=== PATIENT | female | born 2000 | race Caucasian/White ===

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

== ENCOUNTER 2019-07-13 22:38 | Emergency (ER) | payer SELFPAY ==
[~2019-07-13] VITALS: Ht 165.1 cm; Wt 81.8 kg
[~2019-07-13 22:38] MED LIST changes: +DEPO-PROVER150 MG/M1 IM; +SEPTRA DS 8001 TAB PO
[2019-07-13 23:36] LABS: COLLECTION METHOD CLEAN CATCH
[2019-07-13 23:44] LABS: MUCOUS Present /lpf; PH 5 (5-8); URINE APPEARANCE Clear; URINE BACTERIA None Seen /hpf; URINE BILIRUBIN Negative (NEGATIVE); URINE BLOOD Negative (NEGATIVE); URINE COLOR Yellow; URINE GLUCOSE Negative (NEGATIVE); URINE KETONE Negative (NEGATIVE); URINE LEUKOCYTE ESTERASE Trace (NEGATIVE); URINE NITRATE Negative (NEGATIVE); URINE PROTEIN(semi-quant) Negative (NEGATIVE); URINE RBC 0-2 /hpf; URINE UROBILINOGEN Negative (NEGATIVE)
[2019-07-13 23:59] LABS: BASO % 0.3 % (0.0-2.0); EOS # 0.1 (0.0-0.7); EOS % 1.2 % (0-4.0); GRAN # 6.3 (1.4-6.5); GRAN % 73.1 % (42.2-75.2); HEMOGLOBIN 14.1 g/dl (12.0-15.0); LYMPH # 1.3 (1.2-3.4); LYMPH % 15.4 % (20.0-51.0); MEAN CELL VOLUME 87 fl (80.0-95.0); MEAN CORPUSCULAR HEMOGLOBIN 31 pg (26.0-32.0); MEAN CORPUSCULAR HGB CONC 35 g/dl (33.0-37.0); MEAN PLATELET VOLUME 9.1 fl (7.4-10.4); MONO # 0.8 (0.1-0.6); MONO % 9.8 % (1.7-9.3); PLATELET COUNT 236 K/mm3 (130-400); RED BLOOD COUNT 4.59 M/mm3 (4.10-5.30); REDCELL DISTRIBUTION WIDTH-CV 11.8 % (11.5-14.5)
[2019-07-14 00:24] LABS: ALBUMIN 4.2 gm/dL (3.5-5.0); BILIRUBIN,TOTAL 0.2 mg/dL (0.0-1.0); C-REACTIVE PROTEIN 2.2 mg/dL (0.0-0.9); CALCIUM 8.8 mg/dL (8.4-10.2); CREATININE, serum 0.6 (0.52-1.25); POTASSIUM 3.9 mmol/L (3.4-5.0); TOTAL PROTEIN 7.8 gm/dL (6.4-8.2)
[2019-07-14 02:08] VITALS: BP 123/88; PULSE 110; TEMP 98.3
[2019-07-14] MEDS ORDERED: FLAGYL500 MG PO (02:20)
[2019-07-15] MEDS ORDERED: ZOVIRAX400 MG PO (17:21)
== END 2019-07-14 02:42 | disposition home or self-care (01) ==
LOC: COL.ER 22:38
PROVIDERS: Nurse Practitioner
DX: N76.0 Acute vaginitis (principal); F17.210 Nicotine dependence, cigarettes, uncomplicated
CPT/HCPCS: A4216; J0696; J1885; J7030

== ENCOUNTER 2019-07-15 16:24 | Emergency (ER) | payer SELFPAY ==
[~2019-07-15] VITALS: Ht 165.1 cm; Wt 81.8 kg
[2019-07-15 16:32] VITALS: BP 129/79; TEMP 98.2
[2019-07-15] MEDS ORDERED: ZOVIRAX400 MG PO (17:21)
[2019-07-15 18:03] VITALS: PULSE 103
== END 2019-07-15 18:03 | disposition home or self-care (01) ==
LOC: COL.ER 16:24
DX: A60.04 Herpesviral vulvovaginitis (principal)

== ENCOUNTER 2019-10-09 22:44 | Emergency (ER) | payer SELFPAY ==
[~2019-10-09] VITALS: Ht 165.1 cm; Wt 81.8 kg
[~2019-10-09 22:44] MED LIST changes: +ZOVIRAX400 MG PO
[2019-10-09 22:56] VITALS: BP 125/69; TEMP 97.8
[2019-10-10] MEDS ORDERED: MOBIC 7.5MG7.5 MG PO (00:55)
[2019-10-10 01:05] VITALS: PULSE 88
== END 2019-10-10 01:05 | disposition home or self-care (01) ==
LOC: COL.ER 22:44
DX: M25.572 Pain in left ankle and joints of left foot (principal); F17.210 Nicotine dependence, cigarettes, uncomplicated

== ENCOUNTER 2020-06-09 23:29 | Emergency (ER) | payer SELFPAY ==
[~2020-06-09] VITALS: Ht 165.1 cm; Wt 75.0 kg
[~2020-06-09 23:29] MED LIST changes: +MOBIC 7.5MG7.5 MG PO
[2020-06-09 23:35] VITALS: BP 127/83; TEMP 97.4
[2020-06-09 23:46] LABS: COLLECTION METHOD CLEAN CATCH
[2020-06-10] LABS: MUCOUS Present /lpf; PH 6 (5-8); URINE APPEARANCE Cloudy; URINE BACTERIA None Seen /hpf; URINE BILIRUBIN Negative (NEGATIVE); URINE BLOOD 2+ (NEGATIVE); URINE COLOR Amber; URINE GLUCOSE Negative (NEGATIVE); URINE KETONE Negative (NEGATIVE); URINE LEUKOCYTE ESTERASE 1+ (NEGATIVE); URINE NITRATE Positive (NEGATIVE); URINE PROTEIN(semi-quant) 1+ (NEGATIVE); URINE RBC >50 /hpf; URINE UROBILINOGEN >=4.0 mg/dL (NEGATIVE)
[2020-06-10] MEDS ORDERED: BACTRIM DS 8001 TAB PO ×2 (00:41)
[2020-06-10] MEDS ORDERED: CEPHALEXIN500 M1 PO (01:39)
[2020-06-10 02:30] VITALS: PULSE 100
== END 2020-06-10 02:30 | disposition home or self-care (01) ==
LOC: COL.ER 23:29
PROVIDERS: Emergency Medicine
DX: N12 Tubulo-interstitial nephritis, not specified as acute or chronic (principal); F17.210 Nicotine dependence, cigarettes, uncomplicated
CPT/HCPCS: J0696; J7030

== ENCOUNTER 2020-11-05 06:39 | Emergency (ER) | payer OTHER ==
[~2020-11-05] VITALS: Ht 165.1 cm; Wt 79.5 kg
[~2020-11-05 06:39] MED LIST changes: +BACTRIM DS 8001 TAB PO
[2020-11-05 06:48] VITALS: BP 111/77; TEMP 97.9
[2020-11-05] MEDS ORDERED: PROVENTIL0.09 MG/A1 IH (08:07)
[2020-11-05] MEDS ORDERED: PREDNISONE50 MG PO (08:07)
[2020-11-05 08:25] VITALS: PULSE 80
== END 2020-11-05 08:25 | disposition home or self-care (01) ==
LOC: COL.ER 06:39
DX: R06.2 Wheezing (principal); F17.210 Nicotine dependence, cigarettes, uncomplicated; Z20.822 Contact with and (suspected) exposure to COVID-19
CPT/HCPCS: J7512

== ENCOUNTER 2021-03-30 01:10 | Emergency (ER) | payer SELFPAY ==
[~2021-03-30] VITALS: Ht 165.1 cm; Wt 88.6 kg
[~2021-03-30 01:10] MED LIST changes: +PREDNISONE50 MG PO
[2021-03-30 01:23] VITALS: BP 115/96; PULSE 85; TEMP 98.8
== END 2021-03-30 01:45 | disposition home or self-care (01) ==
LOC: COL.ER 01:10
DX: S61.412A Laceration without foreign body of left hand, initial encounter (principal); F17.210 Nicotine dependence, cigarettes, uncomplicated; W26.0XXA Contact with knife, initial encounter

== ENCOUNTER 2021-05-29 17:43 | Emergency (ER) | payer SELFPAY ==
[~2021-05-29] VITALS: Ht 165.1 cm; Wt 88.6 kg
[2021-05-29 17:58] VITALS: TEMP 98.2
[2021-05-29 19:02] VITALS: BP 138/76; PULSE 94
== END 2021-05-29 19:02 | disposition home or self-care (01) ==
LOC: COL.ER 17:43
DX: B34.9 Viral infection, unspecified (principal); J45.990 Exercise induced bronchospasm; F17.210 Nicotine dependence, cigarettes, uncomplicated; Z20.822 Contact with and (suspected) exposure to COVID-19; Z79.899 Other long term (current) drug therapy

== ENCOUNTER 2021-11-08 08:01 | Emergency (ER) | payer SELFPAY ==
[~2021-11-08] VITALS: Ht 165.1 cm; Wt 81.8 kg
[~2021-11-08 08:01] MED LIST changes: +PROAIR HFA0.09 MG/AC IH
[2021-11-08 08:05] VITALS: TEMP 97.8
[2021-11-08 09:22] VITALS: BP 119/70; PULSE 90
== END 2021-11-08 09:22 | disposition home or self-care (01) ==
LOC: COL.ER 08:01
DX: S62.347A Nondisplaced fracture of base of fifth metacarpal bone, left hand, initial encounter for closed fracture (principal); W22.8XXA Striking against or struck by other objects, initial encounter; Y92.511 Restaurant or cafe as the place of occurrence of the external cause

== ENCOUNTER 2021-12-04 18:23 | Emergency (ER) | payer SELFPAY ==
[~2021-12-04] VITALS: Ht 12.7 cm; Wt 84.1 kg
[2021-12-04 18:45] VITALS: BP 143/67; TEMP 98.3
[2021-12-04] MEDS ORDERED: CEPHALEXIN500 M1 PO (19:34)
[2021-12-04] MEDS ORDERED: BACTRIM DS 8001 TAB PO (19:34)
[2021-12-04 19:45] VITALS: PULSE 97
== END 2021-12-04 19:45 | disposition home or self-care (01) ==
LOC: COL.ER 18:23
DX: L81.8 Other specified disorders of pigmentation (principal); Z28.311 Partially vaccinated for COVID-19

== ENCOUNTER 2022-01-07 13:06 | Emergency (ER) | payer SELFPAY ==
[~2022-01-07] VITALS: Ht 165.1 cm; Wt 81.8 kg
[2022-01-07 13:54] VITALS: BP 126/83; PULSE 88
[2022-01-07 15:30] LABS: BASO % 0.4 % (0.0-2.0); EOS # 0.2 K/mm3 (0.0-0.7); EOS % 2.8 % (0.0-4.0); GRAN # 5.2 K/mm3 (1.4-6.5); GRAN % 61.4 % (42.2-75.2); HEMATOCRIT 38.1 % (37.0-47.0); HEMOGLOBIN 13.2 g/dl (12.5-16.0); LYMPH # 2.2 K/mm3 (1.2-3.4); LYMPH % 26.3 % (20.0-51.0); MEAN CELL VOLUME 90 fl (80.0-100.0); MEAN CORPUSCULAR HEMOGLOBIN 31 pg (27-31); MEAN CORPUSCULAR HGB CONC 35 g/dl (33.0-37.0); MEAN PLATELET VOLUME 9.2 fl (7.4-10.4); MONO # 0.8 K/mm3 (0.1-0.6); MONO % 8.9 % (1.7-9.3); PLATELET COUNT 247 K/mm3 (130-400); RED BLOOD COUNT 4.22 M/mm3 (4.10-5.30); REDCELL DISTRIBUTION WIDTH-CV 12.5 % (11.5-14.5)
[2022-01-07 16:13] LABS: INR 0.9 (0.8-3.0); PROTHROMBIN TIME 10.5 SECONDS (9.7-12.8)
== END 2022-01-07 17:24 | disposition home or self-care (01) ==
LOC: COL.ER 13:06
PROVIDERS: Physician Assistant
DX: R05.9 Cough, unspecified (principal)

== ENCOUNTER 2024-04-20 11:35 | Observation (INO) | payer MEDICAID ==
[2024-04-20] VITALS (7 sets, daily range): BP systolic 100–126; BP diastolic 55–84; PULSE 68–78; TEMP 97.7–98.4
[~2024-04-20] VITALS: Ht 165.1 cm; Wt 84.1 kg
[2024-04-20] MEDS ORDERED: Morphine 4 MG/ML VIAL IV PRN ×2 (12:15→21:15)
[2024-04-20] MEDS ORDERED: NS 1,000 ML IV ONE (12:15)
[2024-04-20] MEDS ORDERED: Ondansetron 4 MG/2 ML VIAL IV ONE (12:15)
[2024-04-20 12:33] LABS: ALBUMIN 4.2 g/dL (3.5-5.0); BILIRUBIN,TOTAL 0.7 mg/dL (0.2-1.2); CALCIUM 9.5 mg/dL (8.4-10.2); CREATININE, serum 0.86 mg/dL (0.57-1.11); POTASSIUM 3.5 mEq/L (3.5-4.5); TOTAL PROTEIN 7.9 g/dl (6.2-8.1)
[2024-04-20 12:37] LABS: BASO # 0.1 K/mm3 (0.0-0.2); BASO % 0.3 % (0.0-2.0); EOS # 0.3 K/mm3 (0.0-0.7); EOS % 1.7 % (0.0-4.0); GRAN # 14.1 K/mm3 (1.4-6.5); GRAN % 83.8 % (42.2-75.2); HEMATOCRIT 41.7 % (37.0-47.0); LYMPH # 1.6 K/mm3 (1.2-3.4); LYMPH % 9.3 % (20.0-51.0); MEAN CELL VOLUME 86 fl (80.0-100.0); MEAN CORPUSCULAR HEMOGLOBIN 31 pg (27-31); MEAN CORPUSCULAR HGB CONC 36 g/dl (33.0-37.0); MEAN PLATELET VOLUME 9.2 fl (7.4-10.4); MONO # 0.8 K/mm3 (0.1-0.6); MONO % 4.5 % (1.7-9.3); PLATELET COUNT 267 K/mm3 (130-400); RED BLOOD COUNT 4.87 M/mm3 (4.10-5.30); REDCELL DISTRIBUTION WIDTH-CV 12.4 % (11.5-14.5)
[2024-04-20] MEDS ORDERED: Iohexol 300 - 100 ML VIAL IV ONE (13:15)
[2024-04-20] MEDS ORDERED: NS 100 ML IV SCH (13:16)
[2024-04-20 13:33] LABS: COLLECTION METHOD CLEAN CATCH
[2024-04-20 13:41] LABS: URINE APPEARANCE CLOUDY (CLEAR/HAZY); URINE BLOOD NEGATIVE (NEGATIVE); URINE COLOR YELLOW (YELLOW); URINE GLUCOSE NEGATIVE (NEGATIVE); URINE KETONE 1+ (NEGATIVE); URINE NITRATE NEGATIVE (NEGATIVE); URINE PROTEIN(semi-quant) NEGATIVE (NEGATIVE); URINE UROBILINOGEN 0.2 E.U/dL (0.2-1.0)
[2024-04-20] MEDS ORDERED: ADDERALL XR20 MG PO (14:49)
[2024-04-20] MEDS ORDERED: Rocuronium 50 MG/5 ML Multi-Dose VIAL ONE (18:44)
[2024-04-20] MEDS ORDERED: Lidocaine PF 2% (20 MG/ML) 5 ML VIAL ONE (18:44)
[2024-04-20] MEDS ORDERED: fentaNYL 50 MCG/ML 2 ML VIAL ONE ×2 (18:44→19:38)
[2024-04-20] MEDS ORDERED: dexAMETHasone 10 MG/ML VIAL ONE (18:46)
[2024-04-20] MEDS ORDERED: Ondansetron 4 MG/2 ML VIAL ONE ×2 (18:46→19:33)
[2024-04-20] MEDS ORDERED: Midazolam 2 MG/2 ML VIAL ONE (19:15)
[2024-04-20] MEDS ORDERED: Succinylcholine PF 200 MG/10 ML SYRINGE IV ONE (19:15)
[2024-04-20] MEDS ORDERED: MOTRIN 600600 MG/TAB PO (19:17)
[2024-04-20] MEDS ORDERED: PERCOCET 325 MG1 TA2 PO (19:17)
[2024-04-20] MEDS ORDERED: oxyCODONE/Acetaminophen 5-325 MG TAB PO PRN (19:30)
[2024-04-20] MEDS ORDERED: Ibuprofen 600 MG TAB PO PRN (19:30)
[2024-04-20] MEDS ORDERED: NS 10 ML IV ONE (19:33)
[2024-04-20] MEDS ORDERED: Topical Skin Adhesive 1 EACH (1 ML) TOP ONE (20:02)
[2024-04-20] MEDS ORDERED: HYDROmorphone 1 MG/1 ML SYRINGE [PACU/SDC ONLY] IV PRN (20:30)
[2024-04-20] MEDS ORDERED: Ketorolac 15 MG/ML VIAL IV PRN (20:30)
[2024-04-20] MEDS ORDERED: Ketorolac 30 MG/ML VIAL IV PRN (20:45)
[2024-04-20] MEDS ORDERED: Ondansetron 4 MG/2 ML VIAL IV PRN (21:15)
[2024-04-20] MEDS ORDERED: D5NS & 20 mEq KCl 1,000 ML IV SCH (21:15)
[2024-04-20] MEDS ORDERED: Home oxyCODONE/Acetaminophen 5/325 MG #4 TAB/PACK PO ONE (22:30)
--- NOTE | 2024-04-21 00:30 | NUR ---
Patient arrived to surgical unit from PACU at approximately 2100. Boyfriend is at bedside. Complained of pain to abdomen, given PRN Ibuprofen and Percocet. Able to eat and drink without any nausea. Patient able to urinate at 2330. Ready for discharge. Went over discharge paperwork. All questions answered. Voiced no questions, needs, or concerns. IV taken out to right AC. Given home medication pack for Percocet. Patient left facility at 2359. Staff member assisted out via wheelchair.
== END 2024-04-20 23:59 | disposition home or self-care (01) ==
LOC: COL.ER 11:35 → SURG 14:04
PROVIDERS: Personal Emergency Response Attendant; ADMIT Surgery
DX: K35.80 Unspecified acute appendicitis (principal)
CPT/HCPCS: G0378; J0690; J1100; J1170; J1885; J2250; J2270; J2405; J2543; J2704; J3010; J7030; Q9967